=== PATIENT | female | born 1990 | race Caucasian/White ===

== ENCOUNTER 2016-12-27 03:02 | Emergency (ER) | payer OTHER ==
[~2016-12-27] VITALS: Ht 157.5 cm; Wt 63.5 kg
[~2016-12-27 03:02] MED LIST: BEN10 PO; COM5 PO; RANI-287 PO
[2016-12-27 03:05] VITALS: BP 106/60
--- NOTE | 2016-12-27 03:13 | NUR ---
AMBULATED TO ER BED 7
--- NOTE | 2016-12-27 03:15 | NUR ---
PATIENT PRESENTS TO ED WITH ABD PAIN, DIARRHEA, N/V SINCE THIS YESTERDAY MORNING . SKIN IS PINK/WARM/DRY; AAOX4 WITH EVEN AND STEADY GAIT; PATIENT STATES PAIN OF 7/10 AT THIS TIME; VSS; PATIENT POSITIONED FOR COMFORT; HOB ELEVATED; BEDRAILS UP X2; BED DOWN. ER MD MADE AWARE OF PT STATUS.
--- NOTE | 2016-12-27 03:30 | NUR ---
Patient being evaluated by physician at bedside.
[2016-12-27] MEDS ORDERED: ONDANSETRON 4 MG ODT SL ONE (03:35)
[2016-12-27] MEDS ORDERED: KETOROLAC 60 MG/2 ML VIAL IM ONE (04:30)
--- NOTE | 2016-12-27 05:00 | NUR ---
PT RESTING ON BED. NO SIGNS OF DISTRESS AT THIS TIME.
[2016-12-27] MEDS ORDERED: PROMETHAZINE 25 MG/ML VIAL IM ONE (05:05)
[2016-12-27 05:50] VITALS: BP 100/35
--- NOTE | 2016-12-27 05:50 | NUR ---
Patient discharged with v/s stable. Written and verbal after care instructions given and explained. Patient alert, oriented and verbalized understanding of instructions. Ambulatory with steady gait. All questions addressed prior to discharge. ID band removed. Patient advised to follow up with PMD. Rx of ZOFRAN ODT 4MG, LOMOTIL 2.5MG-0.025MG TABLET given. Patient educated on indication of medication including possible reaction and side effects. Opportunity to ask questions provided and answered.
== END 2016-12-27 05:50 | disposition home or self-care (01) ==
LOC: MED 03:02
DX: K52.9 Noninfective gastroenteritis and colitis, unspecified (principal); J45.909 Unspecified asthma, uncomplicated; G43.909 Migraine, unspecified, not intractable, without status migrainosus; Z79.899 Other long term (current) drug therapy; Z88.5 Allergy status to narcotic agent
CPT/HCPCS: 81002; 81025; 96372; 99284; J1885; J2550; S0119